=== PATIENT | male | born 1955 | race Caucasian/White ===

== ENCOUNTER 2017-11-06 11:58 | Emergency (ER) | payer MEDICAID ==
[~2017-11-06] VITALS: Ht 190.5 cm; Wt 118.0 kg
[~2017-11-06 11:58] MED LIST: ATOR20TA66 PO; CARV6.253 PO; DILT240C96 PO; RIVA15TA PO; RIVA20TA PO
[2017-11-06] MEDS ORDERED: ipratropium/albuterol 3ml nebule NEB ONE (12:35)
[2017-11-06 13:05] LABS: BASOPHILS % (AUTO) 0.5 % (0-1); EOSINOPHILS % (AUTO) 1.2 % (0-6); HEMATOCRIT 43.7 % (42.0-52.0); HEMOGLOBIN 15.3 g/dl (14.0-17.9); LYMPHOCYTES # (AUTO) 0.8 X10'3 (1.1-4.8); LYMPHOCYTES % (AUTO) 18.7 % (21-51); MEAN CORPUSCULAR HEMOGLOBIN 29.3 PG (27.0-31.0); MEAN CORPUSCULAR VOLUME 83.5 FL (78-98); MEAN PLATELET VOLUME 8.1 FL (7.4-10.4); MONOCYTES # (AUTO) 0.7 X10'3 (0-0.9); MONOCYTES % (AUTO) 16.1 % (2-12); NEUTROPHILS # (AUTO) 2.6 X10'3 (1.8-7.7); NEUTROPHILS % (AUTO) 63.5 % (42-75); PLATELET COUNT 179 X10'3 (140-440); RED BLOOD COUNT 5.23 X10'6 (4.70-6.10); RED CELL DISTRIBUTION WIDTH 14.2 % (11.5-14.5); WHITE BLOOD COUNT 4.1 X10'3 (4.5-11.0)
[2017-11-06 13:24] LABS: ALANINE AMINOTRANSFERASE 48 U/L (12-78); ALBUMIN 3.6 G/DL (3.4-5.0); ALKALINE PHOSPHATASE 78 IU/L (46-116); ANION GAP 6 (8-16); ASPARTATE AMINO TRANSFERASE 36 U/L (10-37); BILIRUBIN,TOTAL 0.5 MG/DL (0.1-1.0); BLOOD UREA NITROGEN 15 MG/DL (7-18); BUN/CREATININE RATIO 12.9 (5.4-32.0); CALCIUM 8.8 MG/DL (8.5-10.1); CHLORIDE 100 MMOL/L (99-107); CREATININE 1.16 MG/DL (0.60-1.10); GLUCOSE 115 MG/DL (70-104); POTASSIUM 4.5 MMOL/L (3.5-5.1); SODIUM 138 MMOL/L (135-145); TOTAL CARBON DIOXIDE 31.6 MMOL/L (24-32); TOTAL PROTEIN 7.1 G/DL (6.4-8.2); eGFR 64 ML/MIN
[2017-11-06 13:26] LABS: D-DIMER 0.23 MG/L FEU (0-0.50); INR 1.2 INR; PARTIAL THROMBOPLASTIN TIME 55 SECONDS (22-32)
[2017-11-06] MEDS ORDERED: ALBU8.5H8 IH (13:36)
[2017-11-06 14:08] VITALS: BP 132/93
== END 2017-11-06 14:19 | disposition home or self-care (01) ==
LOC: ER 11:58
DX: R05 Cough (principal); R06.02 Shortness of breath; R50.9 Fever, unspecified; M79.605 Pain in left leg; I10 Essential (primary) hypertension; E78.00 Pure hypercholesterolemia, unspecified; F17.200 Nicotine dependence, unspecified, uncomplicated; Z79.899 Other long term (current) drug therapy
CPT/HCPCS: 36415; 71045; 80053; 84484; 85025; 85379; 85610; 85730; 93005; 94640; 94760; 99285

== ENCOUNTER 2025-05-18 12:51 | Emergency (ER) | payer MEDICAID, MEDICARE ==
[~2025-05-18] VITALS: Ht 193 cm; Wt 122.2 kg
[~2025-05-18 12:51] MED LIST changes: +ALBU8.5H17 IH
[2025-05-18 13:08] VITALS: BP 129/86; PULSE 85; RESP 20; TEMP 97; O2SAT 96
--- NOTE | 2025-05-18 15:08 | Physician Documentation ---
History of Present Illness ~ Chief Complaint: Testicular Pain Stated Complaint: GROIN PAIN Time Seen by MD: 14:06 OK to notify your PCP?: Yes Primary Medical Doctor: NONE Source: patient Mode of Arrival: POV Exam Limitations: no limitations HPI Reports having left testicular pain which started 3 days ago spontaneously. He denies any heavy lifting. He denies any history of hernias. He reports that the testicle started off as tender and then the next day started to get very swollen and now is very tender to light touch or any pressure to it. He denies any pain to the right testicle. Denies any burning with urination or increased frequency. He reports it has been difficult for him to urinate due to the swelling in the scrotum pulling on his penis. He denies any penile discharge. He is having some left hip pain which radiates down to his thigh and up into his back. He reports that he has been walking differently so his testicle does not rub on his thigh and believes that this may be the cause of his hip pain. He did have a hip replacement on this side a year and half ago. Does have a history of a kidney stone that needed removal but that was several years back. Taken any medications prior to arrival for pain. He prefers not taken any pain medications unless absolutely necessary. Medication Reconciliation Allergies: Coded Allergies: No Known Allergies (Unverified , 05/18/25) Scheduled Atorvastatin Calcium (Atorvastatin Calcium), 1 TAB PO DAILY, (Reported) Carvedilol (Carvedilol), 1 TABLET PO BID, (Reported) Diltiazem HCl (Diltiazem 24Hr Cd), 1 CAP PO DAILY, (Reported) Levofloxacin (Levofloxacin), 1 TAB PO DAILY Rivaroxaban (Xarelto), 15 MG PO BID Rivaroxaban (Xarelto), 1 TAB PO DAILY Tamsulosin Hcl* (Flomax*), 1 CAP PO DAILY Scheduled PRN Albuterol Sulfate (Proair Hfa), 2 PUFFS IH Q6H PRN for SOB or wheezing Past Medical History Past Medical History: Atrial Fibrillation, High Cholesterol, Hypertension Past Surgical History: noncontributory Alcohol Use: None Drug Use: none Lives In: Home Review of Systems All Other Systems at this time: Reviewed and Negative Physical Exam Vital Signs: RN Vital Signs have been reviewed: Yes, Temperature: 97.0, Source: Temporal, Heart Rate: 85, Respiratory Rate: 20, BP: 129/86, Pulse Oximetry: 96, Weight: 122.200 Oxygen Flow Rate: 0 Pulse Oximetry Reflects: adequate oxygenation Physical Exam General: Alert, no distress. HEENT: No injection, moist mucous membranes. Neck: Full range of motion. Respiratory: No respiratory distress, equal chest rise and fall. Chest: No accessory muscle use. Cardiovascular: Regular rate and rhythm. Gastrointestinal: Nondistended. Extremities: Normal range of motion, no deformity. Neurologic: Oriented x4. Psychiatric: Normal mood and affect. Skin: Normal color, warm and dry. Rectal: deferred Penile Discharge: none Glans: normal inspection Foreskin: normal inspection Shaft: normal inspection Scrotum: red, swelling, tender, other (Left side affected, right side normal.) Epididymis: other (Unable to palpate due to scrotal swelling) Testicle: other (Unable to palpate due to edema and scrotum.) Progress Results/Orders Reviewed/noted all lab results: Yes Results/Orders Orders - KIRSTEN ANGELES Us Testic/W/Duplex (05/18/25 15:00) Urinalysis, Cult If Indicated (05/18/25 15:02) Completed Orders - KIRSTEN ANGELES Us Testic/W/Duplex (05/18/25 15:00) Levofloxacin Tablet (Levaquin Tablet) (05/18/25 15:30) Tamsulosin Capsule (Flomax Capsule) (05/18/25 15:30) Vital Signs 05/18/25 13:08 Temp 97.0 Pulse 85 Resp 20 B/P (MAP) 129/86 Pulse Ox 96 O2 Flow Rate 0 EKG/XRAY/CT/US/VASC/MRI Ultrasound : Impression Testicular ultrasound with duplex as interpreted by me. Adequate blood flow to both testicles, no torsion. Bilateral hydrocele, bilateral epididymo-orchitis. Medical Decision Making Additional information obtaine: old records Findings Presents with significant left scrotal pain, redness and edema. Ordered u ltrasound to rule out torsion. Offered pain medication such as Tylenol and or ibuprofen but he declines at this time. Ultrasound reveals bilateral hydrocele and epididymitis. There is no evidence of torsion. He does not have any new sexual partners or exposures. He denies any UTI symptoms other than frequent urination which has been going on for years. I will treat him with levofloxacin 500 mg daily for 10 days. First dose given here in the department. We discussed using Tylenol and or ibuprofen at home for pain relief but he still does not want to take any medications for pain. We discussed the management of the hydroceles and that he should keep testicles elevated. He reports he does have an enlarged prostate and has been having issues with urinating every hour at nighttime. He is new to the area and does not yet have a primary care set up. He is requesting a refill of Flomax which he used to be on but has since ran out as he has not established care. I will refill his Flomax for 1 month. He urinated prior to the urinalysis order so sample was not collected. Urinary Diff Dx:Considerations: Include: Epididymitis, UTI Genital Diff Dx:Considerations: Include: Abscess, Balanitis, Balanoposthitis, Cellulitis, Epididymitis, Entrapment injury, Anca's gangrene, Hydrocele, Inguinal hernia, Prostatitis, Syphilis, Testicular torsion, Torsion-epididymis, Torsion-appendiceal, Urinary retention, Urethritis-chlamydial, Urethritis- gonococcal, UTI Departure Disposition: 01 HOME / SELF CARE / HOMELESS Impression: Primary Impression: Epididymitis Additional Impressions: Hydrocele in adult Pain in testicle Swelling of scrotum Pain in scrotum Orchitis Condition: Stable Discharge Instructions: Scrotal Swelling Additional Instructions: Please work to establish care with a primary care provider. You would likely benefit for a referral to a local urologist. I have refilled your Flomax for the next 30 days. Please keep testicles elevated to help with swelling. Please finish all antibiotics as prescribed. Return back here for any new or worsening symptoms. You may benefit from further imaging if symptoms do not fully resolve. Referrals: NO PRIMARY CARE PROVIDER (PCP) Prescriptions Levofloxacin (Levofloxacin) 500 Mg Tablet 1 TAB PO DAILY for 10 Days, #10 TAB Prov: KIRSTEN ANGELES 05/18/25 Tamsulosin Hcl* (Flomax*) 0.4 Mg Cap.sr.24h 1 CAP PO DAILY for 30 Days, #30 CAP Prov: KIRSTEN ANGELES 05/18/25 Education Educated: Patient Educated regarding: diagnosis, treatment, prognosis, need for follow up Additional Comment Medical Screen Exam This patient recieved a medical screening examination. After reviewing the individual's medical complaints with presenting symptoms and performing an appropriate physical examination, it was determined that no immediate life- threatening emergency medical condition is present. This individual is also not a women having contractions. Signature Scribe Signature: . Attestation: Scribed for Kirsten Angelesp by Kirsten Byrd NP . 05/18/25 15:49 Parts of this note were created using [employer] voice recognition software program. While efforts were made to correct any mistakes made by this voice recognition software program, nonsensical phrases may remain in this note. In addition, there may be errors and syntax, grammar, content and spelling. KIRSTEN ANGELESP May 18, 2025 15:08
[2025-05-18] MEDS ORDERED: TAMS-55 PO (15:46)
[2025-05-18] MEDS ORDERED: LEVO-65 PO (15:46)
--- NOTE | 2025-05-18 16:18 | RADIOLOGY REPORT ---
EXAM: US US TESTIC/W/DUPLEX HISTORY: Left testicular pain and swelling COMPARISON: None TECHNIQUE: Multiple longitudinal and transverse sonographic images of the testicles/scrotum were obtained. Doppler was applied as indicated. FINDINGS: [RIGHT]: 3.5 x 3.2 x 3 cm. Normal echogenicity. Increased vascularity. Medium- sized hydrocele with slight complexity. No varicocele. In the inferior aspect of the epididymis, prominent vascular heterogeneous the appearance of the inferior epididymis [LEFT]: 3.2 x 3.2 x 3.2 cm. Normal echogenicity. Increased vascularity. Medium- sized hydrocele. No varicocele. In the inferior aspect of the epididymis, prominent vascular heterogeneous the appearance of the inferior epididymis [OTHER]: None IMPRESSION: 1. Bilateral suspected epididymo-orchitis with prominent areas of heterogeneous echogenicity and increased vascularity of the inferior aspect of the testicles to inferior aspect of the epididymi. 2. Alternative differential also includes abnormal vascular adenomatoid tumors. Consider short-term imaging follow up after empiric therapy.
== END 2025-05-18 17:35 | disposition home or self-care (01) ==
LOC: ER 12:52
DX: N50.812 Left testicular pain (principal); E78.00 Pure hypercholesterolemia, unspecified; I10 Essential (primary) hypertension; N43.3 Hydrocele, unspecified; N50.89 Other specified disorders of the male genital organs; I48.91 Unspecified atrial fibrillation; Z87.442 Personal history of urinary calculi; Z79.899 Other long term (current) drug therapy
CPT/HCPCS: 76870; 93976; 99284